=== PATIENT | male | born 1970 | race Caucasian/White ===

== ENCOUNTER 2019-05-06 12:31 | Emergency (ER) | payer SELFPAY ==
[2019-05-06 12:45] VITALS: TEMP 96.1
[2019-05-06] MEDS ORDERED: CHLORHEXIDINE GLUCONATE 4 % 15 ML UD TOP ONE ×2 (12:46→12:50)
[2019-05-06] MEDS ORDERED: LIDOCAINE 1% 10 ML VIAL INJ ONE (12:46)
--- NOTE | 2019-05-06 12:46 | ED.PDOC ---
History of Present Illness - General Chief Complaint: Laceration Stated Complaint: laceration to left little finger Time Seen by Provider: 05/06/19 12:43 Source: patient Exam Limitations: no limitations - History of Present Illness Initial Comments: Dane De Luna 48 y/o male stated opening a can with his knife then it slipped off causing 5th digit laceration left hand. Timing/Duration: just prior to arrival Severity: moderate Location: extremities - left hand Improving Factors: rest Worsening Factors: movement Associated Symptoms: other - pain/felt nauseated after looking at the wound Allergies/Adverse Reactions: Allergies NO KNOWN ALLERGY Allergy (Verified 05/06/19 12:44) Home Medications: Ambulatory Orders Acetamin W/Cod #3 Tab [Tylenol w/CODEINE #3] 1 ea PO TID PRN #14 tab 05/06/19 Amoxicillin [Amoxil] 1,000 mg PO BID 5 Days #20 cap 05/06/19 Review of Systems - Review of Systems Skin: States: see HPI All other Systems: Reviewed and Negative, No Change from Baseline Past Medical History (General) - Patient Medical History Hx Seizures: No Hx of COPD: No Family Medical History - Family History Father Family History: Unknown Living Status: Unknown Physical Exam - Physical Exam General Appearance: Alert, Comfortable Eyes, Ears, Nose, Throat Exam: normal ENT inspection Neck: non-tender, supple Cardiovascular/Chest: normal peripheral pulses, regular rate, rhythm, no murmur Respiratory: lungs clear, normal breath sounds Gastrointestinal/Abdominal: non tender, soft Extremity: no pedal edema, no calf tenderness Neurologic: alert, oriented x 3 Skin Exam: warm/dry, normal color, other - gaping laceration left 5th digit Skin Character: other - laceration Progress - Progress Progress: 05/06/19 13:34 Vital Signs - 8 hr 05/06/19 12:42 Temperature 96.1 F L Pulse Rate [ 61 Left Brachial] Respiratory 16 Rate Blood Pressure 109/78 [Left Arm] O2 Sat by Pulse 98 Oximetry Procedures - Laceration/Wound Repair Finger Wound Length (cm): 3 - right 5th digit proximal phalanx volar area Wound's Depth, Shape: linear Wound Explored: no foreign body removed Irrigated w/ Saline (cc's): 50 Betadine Prep?: No - hibiclens Anesthesia: 1% Lidocaine Volume Anesthetic (cc's): 8 - metacarpal block Wound Repaired With: sutures Suture Size/Type: 3:0 Number of Sutures: 5 Layer Closure?: No Sterile Dressing Applied?: Yes Departure - Departure Clinical Impression: Laceration of finger of left hand without foreign body Qualifiers: Encounter type: initial encounter Finger: little finger Damage to nail status: without damage Qualified Code(s): S61.217A - Laceration without foreign body of left little finger without damage to nail, initial encounter Time of Disposition: 13:37 Disposition: Discharge to Home or Self Care Condition: Fair Departure Forms: ED Discharge - Pt. Copy, Patient Portal Self Enrollment Instructions: DI for Laceration Repair, How to Care for a Laceration After Repair Prescriptions: Acetamin W/Cod #3 Tab [Tylenol w/CODEINE #3] 1 ea PO TID PRN #14 tab PRN Reason: Pain Amoxicillin [Amoxil] 1,000 mg PO BID 5 Days #20 cap Home Medications: Ambulatory Orders Acetamin W/Cod #3 Tab [Tylenol w/CODEINE #3] 1 ea PO TID PRN #14 tab 05/06/19 Amoxicillin [Amoxil] 1,000 mg PO BID 5 Days #20 cap 05/06/19 Additional Instructions: Removal of sutures 19 May 2019 [facility];Return to ER as needed
[2019-05-06] MEDS ORDERED: TETANUS,DIPHTHERIA,PERTUSSIS 1 EA SYG IM ONE (12:47)
[2019-05-06] MEDS ORDERED: PROMETHAZINE HCL 25 MG TAB PO ONE (12:47)
[2019-05-06] MEDS ORDERED: NEOMYCIN-BACITRACIN-POLYMYXIN 0.9 GM UD TOP ONE (13:28)
[2019-05-06] MEDS ORDERED: HYDROcodone 10MG/APAP 325MG 1 EA TAB PO ONE (13:40)
[2019-05-06] MEDS ORDERED: AMOXICILLIN 500 MG CAP PO ONE (13:40)
[2019-05-06 14:25] VITALS: BP 125/87; O2SAT 99
== END 2019-05-06 14:20 | disposition home or self-care (01) ==
LOC: ER 12:31
DX: S61.217A Laceration without foreign body of left little finger without damage to nail, initial encounter (principal); W26.0XXA Contact with knife, initial encounter; Y92.9 Unspecified place or not applicable; Y93.G1 Activity, food preparation and clean up
CPT/HCPCS: 90471; 90715; Q0169